=== PATIENT | male | born 1960 ===

== ENCOUNTER 2019-04-12 10:40 | Emergency (ER) | payer SELFPAY ==
--- NOTE | 2019-04-12 11:06 | UC ---
Skin Complaint HPI - HPI Summary HPI Summary: 59 yo male presents s/p tick bite. He tells me that last night he was outside a lot and removed a tick later that evening. Today he mentioned it to some friends /family and they recommended he get the area checked over concern a piece of the tick may still be inside. Pt has no pain or itch. - History of Current Complaint Chief Complaint: UCSkin Time Seen by Provider: 04/12/19 11:06 Stated Complaint: TICK BITE Hx Obtained From: Patient Onset/Duration: Sudden Onset Current Severity: None Pain Intensity: 0 Pain Scale Used: 0-10 Numeric - Allergy/Home Medications Allergies/Adverse Reactions: Allergies Allergy/AdvReac Type Severity Reaction Status Date / Time No Known Allergies Allergy Verified 04/12/19 10:49 Home Medications: Home Medications NK [No Home Medications Reported] 04/12/19 [History Confirmed 04/12/19] PMH/Surg Hx/FS Hx/Imm Hx - Additional Past Medical History Additional PMH: None - Surgical History Surgical History: None - Family History Known Family History: Positive: Non-Contributory - Social History Lives: With Family Alcohol Use: Occasionally Substance Use Type: None Smoking Status (MU): Never Smoked Tobacco Review of Systems All Other Systems Reviewed And Are Negative: Yes Constitutional: Positive: Negative Skin: Positive: Other - Tick bite Respiratory: Positive: Negative Cardiovascular: Positive: Negative Neurovascular: Positive: Negative Neurological: Positive: Negative Psychological: Positive: Negative Physical Exam - Summary Physical Exam Summary: GENERAL: NAD. WDWN. No pain distress. SKIN: Mid back: there is a 5mm diameter of mild erythema and edema with central 1mm area of superficial skin loss. No streaking, bleeding, or drainage. NECK: Supple. Nontender. No lymphadenopathy. CHEST: No accessory muscle use. Breathing comfortably and in no distress. CV: Pulses intact. Cap refill <2seconds NEURO: Alert. PSYCH: Age appropriate behavior. Triage Information Reviewed: Yes Vital Signs: Initial Vital Signs Temp 98.1 F 04/12/19 10:46 Pulse 61 04/12/19 10:46 Resp 16 04/12/19 10:46 BP 127/81 04/12/19 10:46 Pulse Ox 100 04/12/19 10:46 Vital Signs Reviewed: Yes Course/Dx - Course Course Of Treatment: Tick appears to be fully removed. Area consistent with tick bite. No sign of infection. Tick embedded likely less than 12 hours therefore advised to monitor for signs/symptoms of lyme and f/u if he develops these. - Diagnoses Provider Diagnosis: Tick bite Discharge - Sign-Out/Discharge Documenting (check all that apply): Patient Departure All imaging exams completed and their final reports reviewed: No Studies - Discharge Plan Condition: Stable Disposition: HOME Patient Education Materials: Tick Bite (ED) Referrals: No Primary Care Phys,NOPCP [Primary Care Provider] - Additional Instructions: TICK BITE: You have been bitten by a tick. Once the tick is removed, these "bites" usually cause no problems. Tick fever, tick paralysis, [place] Spotted fever, and Lyme disease are uncommon -- but you should mention this tick bite to your doctor if you develop unusual symptoms in the next several weeks. If you develop any of the following, please see your physician promptly: (1) Fever, chills, or generalized malaise associated with a headache. (2) A red round area at the site of the bite (or elsewhere) (3) Joint pain, joint swelling or generalized weakness. (4) Redness, swelling, or drainage at the site of the bite. - Billing Disposition and Condition Condition: STABLE Disposition: Home
== END 2019-04-12 11:15 | disposition home or self-care (01) ==
LOC: UCEAST 10:40
DX: T63.481A Toxic effect of venom of other arthropod, accidental (unintentional), initial encounter (principal); Y92.9 Unspecified place or not applicable
CPT/HCPCS: 99201; G0463